=== PATIENT | male | born 1975 | race Caucasian/White ===

== ENCOUNTER → 2018-03-03 | Outpatient (CLI) | payer OTHER ==
--- NOTE | 2018-03-03 16:03 | RADIOLOGY IMAGING REPORT ---
FACILITY: [facility] [place] PATIENT NAME: Manolo Austin : 1975 MR: [id number] V: [id number] EXAM DATE: ORDERING PHYSICIAN: GARTH MACK TECHNOLOGIST: Location: [facility] - [place] Patient: Manolo Austin : 1975 Visit/Account:[id number] Date of Sevice: 03/03/2018 Exam type: CHEST PA AND LAT History: Scoliosis, possible pectus ex bottom Comparison: None. Findings: There is an increased AP diameter to the chest. The lungs are free of focal infiltrates pleural effu sions or pulmonary edema. There is a vague nodular area in the medial portion of the left lung base. Cardiac silhouette is normal in size. There is a pectus carinatum deformity the anterior chest wal l IMPRESSION: 1. Vague nodular area projects over the medial left lung base. Short-term interval follow-up chest or chest CT may be helpful Pectus carinatum Report Dictated By: Crystal Monsalve MD at 03/03/2018 3:55 PM Report E-Signed By: Crystal Monsalve MD at 03/03/2018 3:57 PM WSN:[email or web address]
--- NOTE | 2018-03-03 17:18 | RADIOLOGY IMAGING REPORT ---
[place] [facility] [place]: Manolo Austin : 1975 MR: [id number] V: [id number] EXAM DATE: ORDERING PHYSICIAN: GARTH MACK TECHNOLOGIST: Location: [facility] [place] Patient: Manolo Austin : 1975 Visit/Account:[id number] Date of Sevice: 03/03/2018 Cervical/thoracic/lumbar spine, four views. HISTORY: Scoliosis. COMPARISON: None. A mild levoscoliosis is present in the upper thoracic spine. A minimal dextroscoliosis is present in the mid thoracic spine. A mild levoscoliosis is present at the thoracolumbar junction. A minimal d extroscoliosis is present in the lower lumbar spine. Upper thoracic, midthoracic, thoracolumbar, and lumbar scoliosis angles measure 11 degrees, 2 degrees, 3 degrees, and 4 degrees respectively. The d iscs and posterior elements are partially obscured. Minimal degenerative changes are present in the hips. The sacroiliac joints are unremarkable. IMPRESSION: Mild thoracolumbar scoliosis. Report Dictated By: Marco A Centeno MD at 03/03/2018 5:06 PM Report E-Signed By: Marco A Centeno MD at 03/03/2018 5:13 PM WSN:[email or web address]
== END ==
LOC: RAD 14:47
PROVIDERS: ATTEND Chiropractor
DX: Q67.7 Pectus carinatum (principal); R91.8 Other nonspecific abnormal finding of lung field; M41.85 Other forms of scoliosis, thoracolumbar region
CPT/HCPCS: 71046; 72081